=== PATIENT | female | born 1980 | race Hispanic/Latino ===

== ENCOUNTER 2019-11-19 10:39 | Outpatient (CLI) | payer BC, SELFPAY ==
[2019-11-19 12:17] LABS: Hematocrit 37.1 % (37.0-47.0); Hemoglobin 12.6 g/dL (12.0-15.0); Mean Corpuscular Hemoglobin 30.3 pg (26-34); Mean Corpuscular Volume 89.2 fl (80-100); Mean Platelet Volume 10.7 fl (7.4-10.4); Platelet Count Result 301 k/mm3 (150-375); Red Blood Count 4.16 M/mm3 (4.2-5.4); Red Cell Distribution Width 12.4 % (11.5-14.5); White Blood Count 7.7 K/mm3 (4.5-10.0)
[2019-11-19 12:31] LABS: Alanine Aminotransferase 22 U/L (4-35); Alkaline Phosphatase 76 U/L (38-126); Aspartate Amino Transferase 37 U/L (14-36); Bilirubin,Total 0.2 mg/dL (0.2-1.3); Blood Urea Nitrogen 14 mg/dL (7-17); Calcium 8.7 mg/dL (8.4-10.2); Carbon Dioxide 23 mmol/L (22-30); Chloride 105 mmol/L (98-107); Cholesterol 183 mg/dL (0-200); Estimated Glomerular Filt Rate > 60; Glucose 128 mg/dL (65-105); HDL Direct 39 mg/dL; Potassium 3.8 mmol/L (3.4-5.0); Sodium 136 mmol/L (137-145); Triglycerides 288 mg/dL (<150)
[2019-11-19 12:42] LABS: LDL Cholesterol Direct 106 mg/dL
== END 2019-11-19 10:40 | disposition home or self-care (01) ==
LOC: ANHLAB 10:44
PROVIDERS: PCP Family Medicine
DX: Z79.899 Other long term (current) drug therapy (principal)
CPT/HCPCS: 36415; 80053; 80061; 85027

== ENCOUNTER 2019-12-11 11:22 | Outpatient (CLI) | payer BC, SELFPAY ==
[2019-12-11 13:29] LABS: Hemoglobin A1C 5.8 % (<5.7)
== END 2019-12-11 11:23 | disposition home or self-care (01) ==
PROVIDERS: PCP Nurse Practitioner; Visit Provider Nurse Practitioner
DX: R73.9 Hyperglycemia, unspecified (principal); E03.9 Hypothyroidism, unspecified
CPT/HCPCS: 36415; 83036; 84443

== ENCOUNTER 2019-12-28 14:49 | Outpatient (CLI) | payer BC, SELFPAY ==
[2019-12-28 15:39] LABS: Glucose Fasting 94 mg/dL
[2019-12-28 17:39] LABS: Glucose 1 Hour 191 mg/dL
[2019-12-28 18:06] LABS: Glucose 2 Hour 161 mg/dL
[2019-12-31 03:25] LABS: Insulin Level Total 14.3 uIU/mL (<=19.6); Sex Hormone Binding Globulin 21 nmol/L (17-124)
[2020-01-01 08:06] LABS: FSH 4.7 mIU/mL (***); Prolactin 11.1 ng/mL (***)
[2020-01-02 01:00] LABS: Testosterone Free 24.3 pg/mL (0.2-5.0)
== END 2019-12-28 14:50 | disposition home or self-care (01) ==
PROVIDERS: PCP Family Medicine; Visit Provider Obstetrics & Gynecology
DX: N92.6 Irregular menstruation, unspecified (principal)
CPT/HCPCS: 36415; 82951; 83001; 83002; 83498; 83525; 84146; 84270; 84402

== ENCOUNTER 2020-01-03 10:31 | Outpatient (CLI) | payer BC, SELFPAY ==
--- NOTE | ~2020-01-03 | US_ITS ---
EXAMINATION: US pelvic complete w TV EXAM DATE: 01/03/2020 11:17 INDICATION: Irregular menses. TECHNIQUE: Pelvic transabdominal and transvaginal sonogram was performed. There are multiple graysca le and Doppler images available for interpretation. There is no prior study for comparison. FINDINGS: Uterus measures 9.3 x 5.9 x 6.2 cm, and is morphologically normal. Endometrial stripe shruti sures 7 mm, within normal limits. There is no free pelvic fluid. Right adnexa: The ovary measures 3.6 x 2.2 x 1.6 cm and is morphologically normal. Ovarian vascular f low confirmed. Left adnexa: The ovary measures 2.6 x 1.9 x 2.2 cm and is morphologically normal. Ovarian vascular fl ow confirmed. IMPRESSION: 1. Unremarkable pelvic ultrasound exam. Reviewed, dictated and finalized at location A.
== END 2020-01-03 10:32 | disposition home or self-care (01) ==
PROVIDERS: PCP Family Medicine; Visit Provider Obstetrics & Gynecology
DX: N92.6 Irregular menstruation, unspecified (principal)
CPT/HCPCS: 76830; 76856

== ENCOUNTER → 2020-05-15 15:29 | Outpatient (CLI) | payer BC, SELFPAY ==
--- NOTE | ~2020-05-15 | XR_ITS ---
XR thoracic spine 2V 05/15/2020 16:09 Indication: Thoracic spine pain Procedure: 3 views of the thoracic spine Comparison: 04/17/2015 Findings: No fracture, subluxation or dislocation. There is mild thoracic spondylosis. No paraspinal soft tissue abnormality. Surrounding osseous structures within normal limits. Pedicles intact. Impression: 1: Mild thoracic spondylosis. Reviewed, dictated and finalized at location A. [facility] Impression: 1: Mild thoracic spondylosis.
--- NOTE | ~2020-05-15 | XR_ITS ---
LUMBAR SPINE INDICATION: Low back pain TECHNIQUE: 5 mild facet hypertrophy at L4-5. views lumbar spine COMPARISON: None FINDINGS: No fracture, subluxation or dislocation. No evidence for spondylolysis or spondylolisthesi s. Vertebral bodies and disk spaces are preserved. IMPRESSION: 1: Mild lumbar spondylosis. Reviewed, dictated and finalized at location A. UNDERWRITER IMPRESSION: 1: Mild lumbar spondylosis.
== END ==
PROVIDERS: PCP Family Medicine; Visit Provider Nurse Practitioner Family
DX: M47.894 Other spondylosis, thoracic region (principal); M47.896 Other spondylosis, lumbar region
CPT/HCPCS: 72070; 72110

== ENCOUNTER 2020-06-19 11:20 | Outpatient (CLI) | payer BC, SELFPAY ==
[2020-06-19 18:59] LABS: Hematocrit 35.3 % (37.0-47.0); Hemoglobin 11.6 g/dL (12.0-15.0); Mean Corpuscular HGB Conc 32.9 g/dl (32-36); Mean Corpuscular Hemoglobin 30.4 pg (26-34); Mean Corpuscular Volume 92.7 fl (80-100); Mean Platelet Volume 11.3 fl (7.4-10.4); Platelet Count Result 288 k/mm3 (150-375); Red Blood Count 3.81 M/mm3 (4.2-5.4); White Blood Count 9.6 K/mm3 (4.5-10.0)
== END 2020-06-19 11:21 | disposition home or self-care (01) ==
LOC: ANHBWCLAB 11:21
PROVIDERS: PCP Family Medicine; Visit Provider Obstetrics & Gynecology
DX: N92.0 Excessive and frequent menstruation with regular cycle (principal)
CPT/HCPCS: 36415; 85027

== ENCOUNTER → 2020-10-10 17:23 | Outpatient (CLI) | payer BC, SELFPAY ==
--- NOTE | ~2020-10-10 | MR_ITS ---
EXAMINATION: MR lumbar spine wo con DATE: 10/10/2020 18:38 INDICATION: Low back pain. Lumbar radiculopathy. TECHNIQUE: Magnetic resonance imaging (MRI) of the lumbar spine was performed without intravenous con trast. Sequences included sagittal T2-weighted FSE, sagittal T2-weighted FS FSE, sagittal T1-weighted FSE, and axial T2-weighted FSE. COMPARISON: Lumbar spine MRI 12/24/2016 FINDINGS: Bone alignment is normal. Vertebral body heights are normal. There is mildly decreased disc height at L4-L5 and L5-S1. The distal spinal cord signal intensity is normal. The conus medullaris i s at T12-L1. The following disc levels are specifically discussed: L1-L2: The disc does not extend beyond the endplate margin. There is mild bilateral facet joint osteo arthritis. There is no neural foraminal stenosis. There is no central canal stenosis. L2-L3: The disc does not extend beyond the endplate margin. There is moderate bilateral facet joint o steoarthritis. There is no neural foraminal stenosis. There is no central canal stenosis. L3-L4: The disc does not extend beyond the endplate margin. There is moderate bilateral facet joint o steoarthritis. There is no neural foraminal stenosis. There is no central canal stenosis. L4-L5: The disc is bulging and has an annular fissure. There is severe bilateral facet joint osteoart hritis. There is mild bilateral neural foraminal stenosis. There is no central canal stenosis. L5-S1: The disc is bulging and has an annular fissure. There is severe bilateral facet joint osteoart hritis. There is mild bilateral neural foraminal stenosis. There is mild central canal stenosis. IMPRESSION: 1. Mild lumbar spondylosis, stable from 12/24/2016. Reviewed, dictated and finalized at location A.
== END ==
PROVIDERS: PCP Family Medicine; Visit Provider Nurse Practitioner Family
DX: M47.27 Other spondylosis with radiculopathy, lumbosacral region (principal); M48.07 Spinal stenosis, lumbosacral region
CPT/HCPCS: 72148

== ENCOUNTER 2020-10-30 11:51 | Outpatient (CLI) | payer BC, SELFPAY ==
[2020-10-30 12:11] LABS: Basophils Percent Auto 0.5 % (0.2-1.2); Eosinophils Absolute Auto 0.2 K/mm3 (0-0.3); Eosinophils Percent Auto 1.9 % (0-4.4); Hematocrit 36.9 % (37.0-47.0); Hemoglobin 11.6 g/dL (12.0-15.0); Immature Granulocyte Absolute 0.02 K/mm3 (0.00-0.031); Immature Granulocyte Percent A 0.2 % (0-0.5); Lymphocytes Absolute Auto 3.04 K/mm3 (0.9-3.2); Lymphocytes Percent Auto 36.5 % (18.3-44.2); Mean Corpuscular HGB Conc 31.4 g/dl (32-36); Mean Corpuscular Hemoglobin 26.8 pg (26-34); Mean Corpuscular Volume 85.2 fl (80-100); Mean Platelet Volume 10.6 fl (7.4-10.4); Monocytes Absolute Auto 0.4 K/mm3 (0.1-0.6); Monocytes Percent Auto 4.9 % (2.6-8.5); Neutrophils Absolute Auto 4.7 K/mm3 (1.3-6.7); Platelet Count Result 319 k/mm3 (150-375); Red Blood Count 4.33 M/mm3 (4.2-5.4); Red Cell Distribution Width 16.9 % (11.5-14.5); White Blood Count 8.3 K/mm3 (4.5-10.0)
[2020-10-30 12:25] LABS: Alanine Aminotransferase 35 U/L (4-35); Albumin Level 4.4 g/dL (3.5-5.1); Alkaline Phosphatase 84 U/L (38-126); Anion Gap 12 mmol/L (8-16); Aspartate Amino Transferase 36 U/L (14-36); Bilirubin,Total 0.3 mg/dL (0.2-1.3); Blood Urea Nitrogen 9 mg/dL (7-17); Calcium 9.3 mg/dL (8.4-10.2); Carbon Dioxide 21 mmol/L (22-30); Chloride 108 mmol/L (98-107); Cholesterol 206 mg/dL (0-200); Estimated Glomerular Filt Rate > 60; Glucose 93 mg/dL (65-105); HDL Direct 40 mg/dL; Potassium 3.9 mmol/L (3.4-5.0); Sodium 141 mmol/L (137-145); Triglycerides 176 mg/dL (<150)
[2020-10-30 12:36] LABS: LDL Cholesterol Direct 112 mg/dL
[2020-10-30 13:07] LABS: Erythrocyte Sedimentation Rate 37 mm/hr (0-20)
[2020-10-30 13:28] LABS: Rheumatoid Factor < 8.6 IU/ML (<12)
[2020-10-30 13:39] LABS: Hemoglobin A1C 5.9 % (<5.7)
[2020-11-01 18:17] LABS: Anti Nuclear Antibody Pattern Nuclear, Speckled; Anti Nuclear Antibody Titer 1:40 (Negative)
== END 2020-10-30 11:52 | disposition home or self-care (01) ==
PROVIDERS: PCP Family Medicine; Visit Provider Nurse Practitioner
DX: E78.5 Hyperlipidemia, unspecified (principal); R73.03 Prediabetes; M25.50 Pain in unspecified joint; D64.9 Anemia, unspecified
CPT/HCPCS: 36415; 80053; 80061; 83036; 85025; 85652; 86038; 86039; 86430

== ENCOUNTER 2020-11-04 07:47 | Outpatient (CLI) | payer BC, SELFPAY ==
[2020-11-08 03:26] LABS: Insulin Level Total 9.4 uIU/mL (<=19.6)
[2020-11-08 12:15] LABS: FSH 4.3 mIU/mL (***); LH 8.3 mIU/mL (***); Progesterone 0.4 ng/mL (***)
[2020-11-08 15:07] LABS: Testosterone Total 31 ng/dL (2-45)
== END 2020-11-04 07:48 | disposition home or self-care (01) ==
PROVIDERS: PCP Family Medicine; Visit Provider Obstetrics & Gynecology
DX: N92.6 Irregular menstruation, unspecified (principal)
CPT/HCPCS: 36415; 83001; 83002; 83525; 84144; 84403; 84443

== ENCOUNTER 2020-11-07 17:15 | Outpatient (CLI) | payer BC, SELFPAY ==
[2020-11-07 18:42] LABS: Beta HCG Quantitative < 2.39 mIU/ML
== END 2020-11-07 17:16 | disposition home or self-care (01) ==
PROVIDERS: PCP Family Medicine; Visit Provider Obstetrics & Gynecology
DX: Z30.430 Encounter for insertion of intrauterine contraceptive device (principal)
CPT/HCPCS: 36415; 84702

== ENCOUNTER → 2021-06-05 11:56 | Outpatient (CLI) | payer BC, SELFPAY ==
--- NOTE | ~2021-06-05 | XR_ITS ---
EXAMINATION: XR hand BI arthritis min 3V DATE: 06/05/2021 12:51 INDICATION: Unspecified osteoarthritis TECHNIQUE: Posteroanterior, lateral, and oblique views of the left and of the right hands as well as a ballcatchers view of both hands were obtained. COMPARISON: 07/02/2016 FINDINGS: There is no fracture, dislocation, or subluxation. The bones, soft tissues, and joint space s are normal. There are no abnormal erosions or sclerosis. IMPRESSION: 1. No acute osseous abnormality. Reviewed, dictated and finalized at location F. H WASHER
== END ==
PROVIDERS: Visit Provider Internal Medicine
DX: M19.90 Unspecified osteoarthritis, unspecified site (principal); R76.8 Other specified abnormal immunological findings in serum
CPT/HCPCS: 73130

== ENCOUNTER 2021-08-06 17:21 | Outpatient (CLI) | payer BC, SELFPAY ==
[2021-08-06 18:02] LABS: Complement C3 136 mg/dL (88-165)
[2021-08-06 18:49] LABS: Rheumatoid Factor < 8.6 IU/ML (<12)
[2021-08-08 18:16] LABS: SM Antibody <1.0; SM/RNP Antibody <1.0; SS-A <1.0; SS-B <1.0
[2021-08-09 03:17] LABS: Lupus dRVVT 1:1 Mix Interpreta Not Indicated; Lupus dRVVT Screen 35 sec (<=45); PTT-LA Screen 33 sec (<=40)
[2021-08-09 03:44] LABS: Thyroid Peroxidase Antibodies 1 IU/mL (<9)
[2021-08-09 13:50] LABS: Anti Cyclic Citrullinated Pept <16 Units (<20)
== END 2021-08-06 17:22 | disposition home or self-care (01) ==
LOC: ANHLAB 17:23
PROVIDERS: PCP Nurse Practitioner; Visit Provider Internal Medicine
DX: R76.8 Other specified abnormal immunological findings in serum (principal); M19.90 Unspecified osteoarthritis, unspecified site; Z51.81 Encounter for therapeutic drug level monitoring; Z79.899 Other long term (current) drug therapy
CPT/HCPCS: 36415; 85613; 85730; 86160; 86200; 86225; 86235; 86376; 86430

== ENCOUNTER 2021-11-24 07:30 | Outpatient (CLI) | payer BC, SELFPAY ==
[2021-11-24 08:33] LABS: Basophils Absolute Auto 0.1 K/mm3 (0.0-0.1); Basophils Percent Auto 0.6 % (0.2-1.2); Eosinophils Absolute Auto 0.2 K/mm3 (0-0.3); Eosinophils Percent Auto 1.8 % (0-4.4); Hematocrit 39.4 % (37.0-47.0); Hemoglobin 12.6 g/dL (12.0-15.0); Immature Granulocyte Absolute 0.01 K/mm3 (0.00-0.031); Immature Granulocyte Percent A 0.1 % (0-0.5); Lymphocytes Absolute Auto 3.21 K/mm3 (0.9-3.2); Lymphocytes Percent Auto 38.9 % (18.3-44.2); Mean Corpuscular Hemoglobin 29.9 pg (26-34); Mean Corpuscular Volume 93.4 fl (80-100); Mean Platelet Volume 10.8 fl (7.4-10.4); Monocytes Absolute Auto 0.6 K/mm3 (0.1-0.6); Monocytes Percent Auto 7.2 % (2.6-8.5); Neutrophils Absolute Auto 4.2 K/mm3 (1.3-6.7); Neutrophils Percent Auto 51.4 % (45.5-73.1); Platelet Count Result 287 k/mm3 (150-375); Red Blood Count 4.22 M/mm3 (4.2-5.4); Red Cell Distribution Width 13.6 % (11.5-14.5); White Blood Count 8.3 K/mm3 (4.5-10.0)
[2021-11-24 08:43] LABS: Alanine Aminotransferase 34 U/L (6-35); Albumin Level 4.1 g/dL (3.5-5.1); Alkaline Phosphatase 65 U/L (38-126); Anion Gap 7 mmol/L (8-16); Aspartate Amino Transferase 46 U/L (14-36); Bilirubin,Total 0.4 mg/dL (0.2-1.3); Blood Urea Nitrogen 13 mg/dL (7-17); Calcium 8.6 mg/dL (8.4-10.2); Carbon Dioxide 24 mmol/L (22-30); Chloride 106 mmol/L (98-107); Cholesterol 178 mg/dL (0-200); Estimated Glomerular Filt Rate > 60; Glucose 109 mg/dL (65-110); HDL Direct 35 mg/dL; Potassium 4.1 mmol/L (3.4-5.0); Sodium 137 mmol/L (137-145); Triglycerides 213 mg/dL (<150)
[2021-11-24 08:44] LABS: Hemoglobin A1C 5.7 % (<5.7)
[2021-11-24 08:54] LABS: LDL Cholesterol Direct 95 mg/dL
== END 2021-11-24 07:31 | disposition home or self-care (01) ==
LOC: ANHLAB 07:32
PROVIDERS: PCP Nurse Practitioner; Visit Provider Nurse Practitioner
DX: Z13.6 Encounter for screening for cardiovascular disorders (principal); Z13.220 Encounter for screening for lipoid disorders; R73.03 Prediabetes
CPT/HCPCS: 36415; 80053; 80061; 83036; 85025

== ENCOUNTER 2021-12-06 14:27 | Outpatient (CLI) | payer BC, SELFPAY | END 2021-12-06 14:28 | disposition home or self-care (01) | LOC: ANHAUDIO 14:28 | PROVIDERS: PCP Nurse Practitioner; Visit Provider Nurse Practitioner | DX: H91.93 Unspecified hearing loss, bilateral (principal) | CPT/HCPCS: 92552; 92556; 92567 ==

== ENCOUNTER → 2022-09-19 13:08 | Outpatient (CLI) | payer BC, SELFPAY ==
--- NOTE | ~2022-09-19 | MM_ITS ---
EXAMINATION: MM screening kathi BI w ysabel HISTORY: Screening mammogram TECHNIQUE: Craniocaudal and mediolateral oblique 3-D tomosynthesis images were obtained and synthetic 2-D images were generated. CAD analysis was submitted and interpreted. COMPARISON: No prior mammogram is available for comparison at this institution. BREAST PARENCHYMAL COMPOSITION: There are scattered areas of fibroglandular density. FINDINGS: Possible architectural distortion on the right. Diagnostic right mammogram is recommended, with ultrasound if required. No suspicious mass, architectural distortion, malignant calcification, skin thickening or retraction of either breast is noted otherwise. IMPRESSION: 1. Possible architectural distortion on the right 2. Diagnostic right mammogram is recommended, with ultrasound if required BI-RADS Category 0: Incomplete: Needs additional imaging evaluation. Reviewed, dictated and finalized at location A.
== END ==
PROVIDERS: PCP Family Medicine; Visit Provider Obstetrics & Gynecology
DX: Z12.31 Encounter for screening mammogram for malignant neoplasm of breast (principal); R92.8 Other abnormal and inconclusive findings on diagnostic imaging of breast
CPT/HCPCS: 77063; 77067

== ENCOUNTER → 2022-10-14 14:15 | Outpatient (CLI) | payer BC, SELFPAY ==
--- NOTE | ~2022-10-14 | MM_ITS ---
EXAMINATION: MM diagnostic kathi RT w ysabel HISTORY: Possible right breast architectural distortion on screening mammogram TECHNIQUE: Additional 3-D tomosynthesis images of the right breast were performed and synthetic 2-D i mages were generated. CAD analysis was submitted and interpreted. COMPARISON: 09/19/2022 FINDINGS: No suspicious mass, calcification, or architectural distortion are identified right breast to suggest malignancy. IMPRESSION: 1. No mammographic evidence of malignancy. 2. Recommend routine screening mammography in one year. BI-RADS Category 1: Negative Reviewed, dictated and finalized at location A.
== END ==
PROVIDERS: PCP Family Medicine; Visit Provider Obstetrics & Gynecology
DX: R92.8 Other abnormal and inconclusive findings on diagnostic imaging of breast (principal)
CPT/HCPCS: 77061; 77065; G0279

== ENCOUNTER 2022-11-23 07:23 | Outpatient (CLI) | payer BC, SELFPAY ==
[2022-11-23 08:15] LABS: Alanine Aminotransferase 33 U/L (6-35); Albumin Level 4.3 g/dL (3.5-5.1); Alkaline Phosphatase 74 U/L (38-126); Anion Gap 9 mmol/L (8-16); Aspartate Amino Transferase 26 U/L (14-36); Bilirubin,Total 0.5 mg/dL (0.2-1.3); Blood Urea Nitrogen 13 mg/dL (7-17); Calcium 8.9 mg/dL (8.4-10.2); Carbon Dioxide 24 mmol/L (22-30); Chloride 104 mmol/L (98-107); Cholesterol 179 mg/dL (0-200); Estimated Glomerular Filt Rate > 60; Glucose 100 mg/dL (65-110); HDL Direct 37 mg/dL; Potassium 3.9 mmol/L (3.4-5.0); Sodium 137 mmol/L (137-145); Triglycerides 250 mg/dL (<150)
[2022-11-23 08:24] LABS: LDL Cholesterol Direct 99 mg/dL
[2022-11-23 08:29] LABS: Vitamin D 25 Hydroxy 41.1 ng/mL
[2022-11-23 08:31] LABS: Basophils Percent Auto 0.4 % (0.2-1.2); Eosinophils Absolute Auto 0.2 K/mm3 (0-0.3); Eosinophils Percent Auto 1.7 % (0-4.4); Hemoglobin 13.6 g/dL (12.0-15.0); Immature Granulocyte Absolute 0.02 K/mm3 (0.00-0.031); Immature Granulocyte Percent A 0.2 % (0-0.5); Lymphocytes Absolute Auto 3.42 K/mm3 (0.9-3.2); Lymphocytes Percent Auto 36.7 % (18.3-44.2); Mean Corpuscular Hemoglobin 31.7 pg (26-34); Mean Corpuscular Volume 93.2 fl (80-100); Mean Platelet Volume 10.5 fl (7.4-10.4); Monocytes Absolute Auto 0.6 K/mm3 (0.1-0.6); Monocytes Percent Auto 6.3 % (2.6-8.5); Neutrophils Absolute Auto 5.1 K/mm3 (1.3-6.7); Neutrophils Percent Auto 54.7 % (45.5-73.1); Platelet Count Result 281 k/mm3 (150-375); Red Blood Count 4.29 M/mm3 (4.2-5.4); Red Cell Distribution Width 13.1 % (11.5-14.5); White Blood Count 9.3 K/mm3 (4.5-10.0)
[2022-11-28 05:31] LABS: Lyme Disease Ab (IgM), Blot Negative (Negative); Lyme Disease Ab(IgG), Blot Negative (Negative)
== END 2022-11-23 07:24 | disposition home or self-care (01) ==
LOC: ANHLAB 07:26
PROVIDERS: PCP Family Medicine; Visit Provider Family Medicine
DX: Z00.00 Encounter for general adult medical examination without abnormal findings (principal); F90.9 Attention-deficit hyperactivity disorder, unspecified type; G43.909 Migraine, unspecified, not intractable, without status migrainosus; G47.419 Narcolepsy without cataplexy; M79.7 Fibromyalgia; E53.8 Deficiency of other specified B group vitamins; M25.50 Pain in unspecified joint; R73.03 Prediabetes; E55.9 Vitamin D deficiency, unspecified; E78.5 Hyperlipidemia, unspecified
CPT/HCPCS: 36415; 80053; 80061; 82306; 82607; 83036; 84443; 85025; 86617

== ENCOUNTER 2023-03-22 11:12 | Outpatient (CLI) | payer BC, SELFPAY ==
[2023-03-25 17:25] LABS: Lyme Disease Ab (IgM), Blot Negative (Negative); Lyme Disease Ab(IgG), Blot Negative (Negative)
== END 2023-03-22 11:13 | disposition home or self-care (01) ==
LOC: ANHLAB 11:13
PROVIDERS: PCP Family Medicine; Visit Provider Family Medicine
DX: R76.8 Other specified abnormal immunological findings in serum (principal)
CPT/HCPCS: 36415; 86617

== ENCOUNTER 2023-05-27 11:00 | Outpatient (CLI) | payer BC, SELFPAY ==
[2023-05-27 21:45] LABS: Hemoglobin A1C 6.1 % (<5.7)
== END 2023-05-27 11:01 | disposition home or self-care (01) ==
LOC: ANHGOSHLAB 11:01
PROVIDERS: PCP Family Medicine; Visit Provider Family Medicine
DX: R73.03 Prediabetes (principal)
CPT/HCPCS: 36415; 83036

== ENCOUNTER 2023-11-24 11:16 | Outpatient (CLI) | payer BC, SELFPAY ==
[2023-11-24 19:44] LABS: Hematocrit 39.3 % (37.0-47.0); Hemoglobin 13.2 g/dL (12.0-15.0); Mean Corpuscular HGB Conc 33.6 g/dl (32-36); Mean Corpuscular Hemoglobin 31.4 pg (26-34); Mean Corpuscular Volume 93.6 fl (80-100); Mean Platelet Volume 11.2 fl (7.4-10.4); Platelet Count Result 262 k/mm3 (150-375); Red Cell Distribution Width 13.2 % (11.5-14.5); White Blood Count 8.6 K/mm3 (4.5-10.0)
[2023-11-24 20:13] LABS: Alanine Aminotransferase 23 U/L (6-35); Albumin Level 4.2 g/dL (3.5-5.1); Alkaline Phosphatase 62 U/L (38-126); Anion Gap 7 mmol/L (4-12); Aspartate Amino Transferase 28 U/L (14-36); Bilirubin,Total 0.5 mg/dL (0.2-1.3); Blood Urea Nitrogen 13 mg/dL (7-17); Calcium 9.4 mg/dL (8.4-10.2); Carbon Dioxide 25 mmol/L (22-30); Chloride 106 mmol/L (98-107); Cholesterol 185 mg/dL (0-200); Estimated Glomerular Filt Rate > 60; Glucose 96 mg/dL (65-110); HDL Direct 34 mg/dL; Potassium 4.1 mmol/L (3.4-5.0); Sodium 138 mmol/L (137-145); Triglycerides 233 mg/dL (<150)
[2023-11-24 20:25] LABS: LDL Cholesterol Direct 114 mg/dL
[2023-11-24 20:49] LABS: Hemoglobin A1C 5.8 % (<5.7)
[2023-11-27 12:18] LABS: Vitamin D 1,25 (OH)2 Total 58 pg/mL (18-72); Vitamin D2 1,25 (OH)2 <8 pg/mL; Vitamin D3 1,25 (OH)2 58 pg/mL
== END 2023-11-24 11:17 | disposition home or self-care (01) ==
LOC: ANHGOSHLAB 11:17
PROVIDERS: PCP Family Medicine; Visit Provider Nurse Practitioner Family
DX: Z00.00 Encounter for general adult medical examination without abnormal findings (principal); E78.5 Hyperlipidemia, unspecified; E55.9 Vitamin D deficiency, unspecified; E53.8 Deficiency of other specified B group vitamins; I10 Essential (primary) hypertension; K21.9 Gastro-esophageal reflux disease without esophagitis; R73.03 Prediabetes; F90.9 Attention-deficit hyperactivity disorder, unspecified type; G43.909 Migraine, unspecified, not intractable, without status migrainosus; M51.35 Other intervertebral disc degeneration, thoracolumbar region; M79.7 Fibromyalgia; R76.8 Other specified abnormal immunological findings in serum; E66.01 Morbid (severe) obesity due to excess calories; Z68.42 Body mass index [BMI] 45.0-49.9, adult; Z13.29 Encounter for screening for other suspected endocrine disorder
CPT/HCPCS: 36415; 80053; 80061; 82607; 82652; 83036; 84443; 85027

== ENCOUNTER 2024-11-23 11:32 | Outpatient (CLI) | payer BC, SELFPAY ==
--- OUTSIDE RECORDS SUMMARY | 2024-11-23 11:35 | XMS_ITS | Clinical Summary ---
Author Organization [facility] Address [facility] [place] [address] Care Team Providers Care Grinder Dresser Name Role Phone Munir Lorenzo MD Primary Care Provider [phone]- [phone] Allergies Active Allergy Reactions Criticality Noted Date Comments Carbamazepine Other (See comments) High 03/27/2016 paralyzed Medications dextroamphetamin e-amphetamine XR (ADDERALL XR) 30 mg 24 hr capsule 0 8 Active haloperidol (HALDOL) 5 mg tablet Take 5 mg by mouth daily. 1 8 Active albuterol HFA (PROAIR HFA) 90 mcg/actuation inhaler 6 Active cetirizine (ZyrTEC) 10 mg capsule Take by mouth. 6 Active fluticasone (FLONASE) 50 mcg/actuation nasal spray Administer 1 spray into each nostril. 6 Active montelukast (SINGULAIR) 10 mg tablet Take 10 mg by mouth. [address] (VOLTAREN) 75 mg EC tablet TAKE 1 TABLET BY MOUTH TWICE DAILY WITH FOOD OR MILK 1 Active cyclobenzaprine (FLEXERIL) 5 mg tablet TAKE 1 TABLET BY MOUTH TWICE DAILY NEEDED FOR MUSCLE SPASMS 0 Active traZODone (DESYREL) 50 mg tablet Take 50 mg by mouth nightly at bedtime. 1 Active EPINEPHrine 0.3 mg/0.3 mL auto-injection syringe Inject 0.3 mg into the muscle as instructed daily as needed 1 Active ferrous sulfate 325 mg (65 mg of elemental iron) tablet Take 325 mg by mouth daily Active Mirena IUD 1 Active multivitamin-min erals-lutein tablet Take 1 tablet by mouth daily Active sulfamethoxazole -trimethoprim (BACTRIM DS) 800-160 mg per tablet TAKE 1 TABLET BY MOUTH EVERY 12 HOURS FOR 5 DAYS 1 Active busPIRone (BUSPAR) 5 mg tablet Take 5 mg by mouth every morning 1 Active celecoxib (CeleBREX) 100 mg capsule Take 100 mg by mouth 2 (two) times a day 1 Active celecoxib (CeleBREX) 200 mg capsule TAKE 1 CAPSULE BY MOUTH TWICE DAILY FOR 30 DAYS. TAKE WITH FOOD/MILK. DO NOT TAKE WITH OTHER NSAIDS 1 Active topiramate (TOPAMAX) 50 mg tabletIndication s:Abnormal weight gain,Class 3 severe obesity due to excess calories without serious comorbidity with body mass index (BMI) of 45.0 to 49.9 in adult TAKE 1 TABLET(50 MG) BY MOUTH TWICE DAILY 60 tablet 1 Active Active Problems Problem Noted Date Diagnosed Date Abnormal weight gain 01/31/2021 Allergic rhinitis 01/31/2016 Uncomplicated asthma 01/31/2016 Immunizations Immunization Administration Dates Next Due Tdap 05/25/2020,05/26/2009 Surgical History Surgery Date Site/Laterality Comments TUBAL LIGATION Medical History Medical History Date Comments Peripheral neuropathy Asthma ADHD (attention deficit hyperactivity disorder) Osteoarthritis Fibromyalgia Family History Medical History Relation Name Comments Arthritis Other Cancer Other Diabetes Other Heart disease Other Hypertension Other Kidney disease Other Mental illness Other Stroke Other Relation Name Status Comments Father (Age 64) Mother Alive Other Social History Tobacco Use Types Packs/Day Years Used Date Smoking Tobacco: Never Smokeless Tobacco: Never Alcohol Use Standard Drinks/Week Comments Yes 0 (1 standard drink = 0.6 oz pur e alcohol) PHQ-2 Answer Date Recorded PHQ-2 Total Score (If total score is 3 or more points, staff should administer the PHQ-9) 2 01/31/2021 Personal Safety Answer Date Recorded Getting School Help Needed Not on file 07/25 Comments Unknown Sex and Gender Information Value Date Recorded Sex Assigned at Not on file Legal Sex Female 12:09 PM CDT Gender Identity Not on file Sexual Orientation Not on file Obstetrics History Last Filed Vital Signs Vital Sign Reading Time Taken Comments Blood Pressure 118/64 01/31/2021 4:18 PM CDT Pulse 87 01/31/2021 4:18 PM CDT Temperature 36.8 C (98.2 F) 01/31/2021 4:18 PM CDT Respiratory Rate 16 01/31/2021 4:18 PM CDT Oxygen Saturation 99% 01/31/2021 4:18 PM CDT Inhaled Oxygen Concentration - - Weight 119.1 kg (262 lb 8 oz) 01/31/2021 4:18 PM CDT Height 162 cm (5' 3.78) 01/31/2021 4:18 PM CDT Body Mass Index 45.37 01/31/2021 4:18 PM CDT Plan of Treatment Not on file Insurance [employer] Member Subscriber Plan / Payer (Ef fective 2019-Present) Name:Georgia Javed Relation to Subscriber:Spouse Name:BRADY JAVED Date of :1981 (Home) Address: [address] [place] [address] Payer ID:[id number] ([facility] Type:[facility] Address: [facility] [id number] [place] [address] [employer] Care Teams Grinder Dresser Relationship Specialty Start Date End Date Munir Lorenzo MD [address] [place] [address] PCP - General Family Practice 04/02/18
--- OUTSIDE RECORDS SUMMARY | 2024-11-23 11:35 | XMS_ITS | Clinical Summary ---
Author Organization [facility] Address [address] [facility] [place] [address] Care Team Providers Care Supervisor Capacitor Processing Name Role Phone Munir Lorenzo MD Primary Care Provider [phone]- [phone] Source Comments [facility],non-owned Affiliates and Associated Physician Practices is amultiple site organization consisting of ambulatory clinics and hospital sitesin [place], [place], [place]. This disclosure is being madepursuant to the Care Everywhere program and may not contain all information available regarding this patient. Last updated 18.[facility] Allergies Active Allergy Reactions Criticality Noted Date Comments Carbamazepine Other High 03/27/2016 paralyzed Medications * Be aware that medications may not be up to date on this document. Alwaysverify current medications with the patient. cetirizine (ZYRTEC ALLERGY) 10 MG gel capsule Take by mouth. 6 Active albuterol HFA (PROAIR HFA) 108 (90 BASE) MCG/ACT inhaler 3 6 Active traMADol (ULTRAM) 50 MG tablet Take 50 mg by mouth q6h PRN. 1 6 Active ibuprofen (ADVIL) 200 MG capsule Take by mouth. 6 Active amphetamine-dex troamphetamine XR 24hr (ADDERALL XR) 20 MG capsule 0 6 Active haloperidol (HALDOL) 5 MG tablet Take 1 tablet by mouth at bedtime 2 9 Active meloxicam (MOBIC) 15 MG tablet Take 1 tablet by mouth once daily 0 Active EPINEPHrine (EPIPEN) 0.3 MG/0.3ML auto-injector pen Inject 0.3 mL into muscle once as needed for Anaphylaxis 2 Each 1 Active Active Problems Problem Noted Date Diagnosed Date Uncomplicated asthma 01/31/2016 Allergic rhinitis 01/31/2016 Family History Medical History Relation Name Comments Allergic Rhinitis Brother Relation Name Status Comments Brother Social History Tobacco Use Types Packs/Day Years Used Date Smoking Tobacco: Never Smokeless Tobacco: Never Comments No Sex and Gender Information Value Date Recorded Sex Assigned at Not on file Legal Sex Female 5: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 Gender Identity Not on file Sexual Orientation Not on file Last Filed Vital Signs Vital Sign Reading Time Taken Comments Blood Pressure 110/72 08/12/2018 8:43 AM CDT Pulse 76 08/12/2018 8:43 AM CDT Temperature 36.8 C (98.2 F) 11/22/2019 1:04 PM CDT Respiratory Rate 20 08/12/2018 8:43 AM CDT Oxygen Saturation 98% 08/13/2017 8:52 AM CDT Inhaled Oxygen Concentration - - Weight 107 kg (236 lb) 08/12/2018 8:43 AM CDT Height 162.6 cm (5' 4) 08/12/2018 8:43 AM CDT Body Mass Index 40.51 08/12/2018 8:43 AM CDT Plan of Treatment Health Maintenance Due Date Last Done Comments LIPID TESTING 1980 MAMMOGRAM 1980 HIV SCREENING 1996 HEPATITIS C SCREENING 11/15/1999 DTAP/TDAP/TD VACCINES (1 - Tdap) 2000 HEPATITIS B VACCINE (1 of 3 - 19+ 3-dose series) 2000 COVID-19 VACCINE ( - 2023-2 5 season) 2024 DEPRESSION SCREENING 05/26/2024 INFLUENZA VACCINE (Season Ended) 2025 ZOSTER VACCINE (1 of 2) 11/20/2031 HIB VACCINE Aged Out No longer eligi ble based on patient's age to complete this topic HPV VACCINE Aged Out No longer eligi ble based on patient's age to complete this topic MENINGOCOCCAL (Group B) VACC INE SHARED DECISION-MAKING Aged Out No longer eligibl e based on patient's age to complete this topic MENINGOCOCCAL GROUPS A/C/Y/W VACCINE Aged Out No longer eligible b ased on patient's age to complete this topic PNEUMOCOCCAL VACCINE Aged Out No long er eligible based on patient's age to complete this topic Insurance ANTH Care Teams Supervisor Capacitor Processing Relationship Specialty Start Date End Date Munir Lorenzo MD [address] [place] [address] PCP - General 06/01/15
--- OUTSIDE RECORDS SUMMARY | 2024-11-23 11:35 | XMS_ITS | Referral Summary ---
Author Organization [facility] Address [facility] [place] [address] Care Team Providers Care Solar Site Assessment Specialist Name Role Phone Munir Lorenzo MD Primary Care Provider +1- [phone] Allergies Active Allergy Reactions Criticality Noted Date [...] Immunization Administration Dates Next Due Tdap 05/25/2020,05/26/2009 Social History Tobacco Use Types Packs/Day Years [...] Plan of Treatment Not on file Insurance [employer]MENT [employer] LAB[employer] Care Teams Solar Site Assessment Specialist Relationship Specialty Start Date End Date Munir Lorenzo MD [address] [place] [address] PCP - General Family Practice 04/02/18
[2024-11-23 15:31] LABS: Alanine Aminotransferase 30 U/L (6-35); Albumin Level 4.3 g/dL (3.5-5.1); Alkaline Phosphatase 63 U/L (38-126); Anion Gap 11 mmol/L (4-12); Aspartate Amino Transferase 60 U/L (14-36); Bilirubin,Total 0.4 mg/dL (0.2-1.3); Blood Urea Nitrogen 16 mg/dL (7-17); Calcium 9.5 mg/dL (8.4-10.2); Carbon Dioxide 21 mmol/L (22-30); Chloride 104 mmol/L (98-107); Cholesterol 190 mg/dL (0-200); Estimated Glomerular Filt Rate > 60; Glucose 102 mg/dL (65-110); HDL Direct 34 mg/dL; Potassium 4.2 mmol/L (3.4-5.0); Sodium 136 mmol/L (137-145); Total Protein 7.7 g/dL (6.3-8.2); Triglycerides 238 mg/dL (<150)
[2024-11-23 15:56] LABS: Hematocrit 42.2 % (37.0-47.0); Hemoglobin 13.9 g/dL (12.0-15.0); Immature Granulocyte Percent A 0.3 % (0-0.5); Lymphocytes Absolute Auto 3.51 K/mm3 (0.9-3.2); Mean Corpuscular HGB Conc 32.9 g/dl (32-36); Mean Corpuscular Hemoglobin 30.6 pg (26-34); Mean Corpuscular Volume 93.0 fl (80-100); Nucleated Red Blood Cells Absolute Auto 0.000 K/mm3 (0.0-0.012); Nucleated Red Blood Cells Perc 0.0 % (0.0-0.2); Platelet Count Result 300 k/mm3 (150-375); Red Blood Count 4.54 M/mm3 (4.2-5.4); White Blood Count 9.7 K/mm3 (4.5-10.0)
[2024-11-23 17:06] LABS: Thyroid Stimulating Hormone Reflex 1.870 uIU/mL (0.465-4.68)
[2024-11-23 20:02] LABS: Hemoglobin A1C. 6.2 % (<5.7)
[2024-11-24 16:23] LABS: HIV 1 2 Ag Ab 4th Gen w Rflxs Non-reactive
== END 2024-11-23 11:33 | disposition home or self-care (01) ==
LOC: ANHGOSHLAB 11:32
PROVIDERS: PCP Nurse Practitioner Family; Visit Provider Nurse Practitioner Family
DX: R73.03 Prediabetes (principal); Z11.3 Encounter for screening for infections with a predominantly sexual mode of transmission; E78.5 Hyperlipidemia, unspecified; E55.9 Vitamin D deficiency, unspecified; G47.419 Narcolepsy without cataplexy; G43.909 Migraine, unspecified, not intractable, without status migrainosus; Z72.89 Other problems related to lifestyle; Z79.899 Other long term (current) drug therapy
CPT/HCPCS: 36415; 80053; 80061; 82306; 83036; 84443; 85025; 86803; 87389; 87491; 87591